=== PATIENT | female | born 1960 | race American Indian/Alaskan Native ===

== ENCOUNTER 2016-08-23 18:21 | Emergency (ER) | payer MEDICAID ==
[2016-08-23] MEDS ORDERED: TYLENOL ONE (19:13)
[2016-08-23 20:17] VITALS: BP 123/72
[2016-08-23] MEDS ORDERED: TYLENOL PO ONE (20:17)
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
== END 2016-08-24 01:15 | disposition left against medical advice (07) ==
LOC: ED 18:21
DX: M25.571 Pain in right ankle and joints of right foot (principal); M25.561 Pain in right knee; M25.511 Pain in right shoulder; Z53.21 Procedure and treatment not carried out due to patient leaving prior to being seen by health care provider; V49.49XA Driver injured in collision with other motor vehicles in traffic accident, initial encounter; Y93.9 Activity, unspecified; Y92.9 Unspecified place or not applicable; Y99.9 Unspecified external cause status

== ENCOUNTER 2016-08-25 15:41 | Emergency (ER) | payer MEDICAID ==
[2016-08-25 16:13] VITALS: BP 158/74
[2016-08-25] MEDS ORDERED: TYLENOL PO ONE (16:37)
== END 2016-08-25 21:19 | disposition left against medical advice (07) ==
LOC: ED 15:41
DX: R51 Headache (principal); H92.21 Otorrhagia, right ear; M54.5 Low back pain; M54.2 Cervicalgia; R11.0 Nausea; V49.40XA Driver injured in collision with unspecified motor vehicles in traffic accident, initial encounter; Y93.89 Activity, other specified; Y99.9 Unspecified external cause status; Y92.410 Unspecified street and highway as the place of occurrence of the external cause; Z53.21 Procedure and treatment not carried out due to patient leaving prior to being seen by health care provider

== ENCOUNTER 2016-11-11 20:07 | Emergency (ER) | payer MEDICAID ==
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
[2016-11-11] MEDS ORDERED: MOTRIN PO ONE (22:17)
[2016-11-11 22:39] LABS: Bilirubin,Urine NEG (Negative); Blood,Urine SM (Negative); Ketones,Urine NEG (Negative); Leukocyte Esterase,Urine NEG (Negative); Mucus,Urine FEW /HPF; Nitrite,Urine NEG (Negative); Protein,Urine <15 mg/dL mg/dL (Negative); Urobilinogen,Urine < 2.0 mg/dL (<2.0)
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
[2016-11-11] MEDS ORDERED: NORCO 5/325 PO ONE (23:40)
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
[2016-11-12 01:31] VITALS: BP 135/76
== END 2016-11-12 01:33 | disposition home or self-care (01) ==
LOC: ED 20:07
DX: M54.5 Low back pain (principal); R51 Headache; M54.2 Cervicalgia; V89.2XXA Person injured in unspecified motor-vehicle accident, traffic, initial encounter; Y93.89 Activity, other specified; Y99.8 Other external cause status; Y92.488 Other paved roadways as the place of occurrence of the external cause
CPT/HCPCS: 70450; 72125; 72131; 81001; 81025; 87086

== ENCOUNTER 2018-08-25 09:15 | Outpatient (CLI) | payer MEDICAID ==
[2018-08-25] MEDS ORDERED: DULCOLAX PR ONE (10:32)
[2018-08-25] MEDS ORDERED: DULCOLAX PR PRN (10:42)
--- NOTE | 2018-08-26 08:22 | Fluoroscopy Report ---
FLUOROSCOPY DEFAGRAM HISTORY: Chronic idiopathic constipation. FINDINGS: [employer] film of the abdomen demonstrates an unremarkable bowel gas pattern. There is no evidence for rectal mass or ulceration. 49 lateral cine fluoroscopic images were obtained during defecation. The patient had severe difficulty in the initiation of defecation. After several minutes of trying, defecation occurred but resulted in only 50% emptying of the rectosigmoid colon. A small rectocele is identified but appears to adequately empty. There is no evidence for prolapse or enterocele. IMPRESSION: Poor evacuation of the rectosigmoid colon as described. The patient did have significant difficulty in initiating defecation. Small rectocele.
== END 2018-08-25 09:16 | disposition home or self-care (01) ==
LOC: FLUORO 09:15
PROVIDERS: ATTEND Nurse Practitioner
DX: N81.6 Rectocele (principal); K59.04 Chronic idiopathic constipation
CPT/HCPCS: 74270; Q9963

== ENCOUNTER 2018-09-03 04:44 | Emergency (ER) | payer MEDICAID ==
[2018-09-03 04:56] VITALS: BP 112/62
[2018-09-03 05:47] LABS: Bilirubin,Urine NEG (Negative); Blood,Urine MOD (Negative); Color,Urine Yellow (Yellow); Hyaline Casts,Urine 1 /LPF; Protein,Urine <15 mg/dL mg/dL (Negative); Urobilinogen,Urine < 2.0 mg/dL (<2.0)
[2018-09-03 05:49] LABS: RBC,Urine > 182.0 /HPF (0.0-6.0)
[2018-09-03] MEDS ORDERED: IBUPROFEN PO ONE (07:58)
[2018-09-03] MEDS ORDERED: FLEXERIL PO ONE (07:58)
--- NOTE | 2018-09-03 08:53 | XRay Report ---
RIGHT SHOULDER, 3 VIEWS: HISTORY: right shoulder pain. Normal bone mineralization. No acute osseous injury or joint pathology is detected. The soft tissues are unremarkable. IMPRESSION: Right shoulder within normal limits.
--- NOTE | 2018-09-03 08:54 | XRay Report ---
CERVICAL SPINE, 3 views: History: Neck pain. Findings: The vertebral bodies, posterior elements and prevertebral soft tissues are unremarkable. The dens is intact. Mild disc space narrowing with posterior spurring is identified at C4-5 and C5-6. No acute fracture or malalignment is identified. Impression: Mild degenerative disc disease at C4-5 and C5-6. No evidence for acute injury to the cervical spine.
--- NOTE | 2018-09-03 09:05 | Emergency Department Report ---
ED Back Pain/Injury HPI - General Chief Complaint: Back Pain/Injury Stated Complaint: BACK PAIN SHOOTING SOB Time Seen by Provider: 09/03/18 07:31 Source: patient Limitations: No Limitations - History of Present Illness Initial Comments: Ms. Morales is a 57-year-old female who comes to the ER today after a ground- level fall at home. She states that she got up out of the bed last night and fell onto her right side. She is complaining of right shoulder and neck pain. She did not take anything for her pain. Patient denies any major medical problems. She denies being on home medications. Patient is currently on her menses. Patient is ambulatory on admission. -: Sudden Similar Symptoms Previously: No Place: home Worsens With: medication - Related Data Previous Rx's Medication Instructions Recorded Last Taken Type Cyclobenzaprine [Flexeril] 10 mg PO TID PRN #12 tablet 09/03/18 Unknown Rx Naproxen [Naprosyn TAB] 500 mg PO BID PRN #20 tablet 09/03/18 Unknown Rx Allergies Allergy/AdvReac Type Severity Reaction Status Date / Time No Known Allergies Allergy Verified 08/23/16 20:11 ED Review of Systems ROS: Stated complaint: BACK PAIN SHOOTING SOB Other details as noted in HPI Comment: All other systems reviewed and negative ED Past Medical Hx - Past Medical History Medical history: no medical history ED Back Pain Physical Exam - Exam General: Vital signs noted. No distress. Alert and acting appropriately. Back/Abdomen: No Abdominal Tenderness, No Perithoracic Tenderness, No Perilumbar Tenderness, No Sacroiliac Tenderness, No Flank Tenderness, No Straight Leg Raise Pain Neuro: Yes Normal Sensation, Yes Normal DTR's, Yes Normal Gait, No Motor Weakness ED Course Vital Signs 09/03/18 09/03/18 04:47 08:49 Temperature 97.8 F Pulse Rate 85 Respiratory 16 18 Rate Blood Pressure 112/62 O2 Sat by Pulse 100 Oximetry Ed Back Pain Tests - Tests Tests: Normal X Rays ED Medical Decision Making - Radiology Data Radiology results: report reviewed, image reviewed - Medical Decision Making XRAYS NEG FOR ACUTE FX MEDICATED FOR PAIN FULL ROM UPPER EXTREMITIES FULL ROM OF NECK NO POINT TENDERNESS NEURO INTACT Vital Signs 09/03/18 09/03/18 04:47 08:49 Temperature 97.8 F Pulse Rate 85 Respiratory 16 18 Rate Blood Pressure 112/62 O2 Sat by Pulse 100 Oximetry Critical care attestation.: If time is entered above; I have spent that time in minutes in the direct care of this critically ill patient, excluding procedure time. ED Disposition Clinical Impression: Fall, Musculoskeletal pain Disposition: DC- TO HOME OR SELFCARE Is pt being admited?: No Does the pt Need Aspirin: No Condition: Stable Instructions: Musculoskeletal Pain (ED) Additional Instructions: XRAYS NORMAL WARM COMPRESSES MOTRIN OR TYLENOL FOR MILD PAIN MEDS ORDERED TODAY FOLLOW UP PCP REFERRAL BELOW ACTIVITY TOLERATED Prescriptions: Cyclobenzaprine [Flexeril] 10 mg PO TID PRN #12 tablet PRN Reason: Muscle Spasm Naproxen [Naprosyn TAB] 500 mg PO BID PRN #20 tablet PRN Reason: Pain Referrals: CINTHYA BAKER MD [Primary Care Provider] - 3-5 Days Time of Disposition: 09:03
== END 2018-09-03 09:16 | disposition home or self-care (01) ==
LOC: ED 04:44
DX: M25.511 Pain in right shoulder (principal); M54.2 Cervicalgia; W18.30XA Fall on same level, unspecified, initial encounter; Y93.89 Activity, other specified; Y92.009 Unspecified place in unspecified non-institutional (private) residence as the place of occurrence of the external cause; Y99.8 Other external cause status
CPT/HCPCS: 72040; 81001